=== PATIENT | male | born 1960 | race Caucasian/White ===

== ENCOUNTER 2017-05-07 08:01 | Inpatient (IN) | payer BC ==
[~2017-05-07] VITALS: Ht 167.6 cm; Wt 80.0 kg
[2017-05-07] VITALS (12 sets, daily range): BP systolic 132–145; BP diastolic 78–94; PULSE 52–81; RESP 16–24; TEMP 97.8–98.7; O2SAT 97–100
[~2017-05-07 08:01] MED LIST: CIPR500T2 PO; [UNRECOGNIZED DRUG - CODE] PO
[2017-05-07] MEDS ORDERED: SODIUM CHLOR 0.9% 1000 ML INJ 1,000 ML IV ONE (08:08)
[2017-05-07 08:27] LABS: AUTOMATED NEUTROPHIL # 4.4 TH/MM3 (1.8-7.7); BASOPHIL # 0.1 TH/MM3 (0-0.2); BASOPHIL % 0.9 % (0.0-2.0); EOSINOPHIL # 0.2 TH/MM3 (0-0.4); HEMATOCRIT 49.8 % (39.0-51.0); HEMO FLAGS DIFF FINAL; LYMPH % 33.2 % (9.0-44.0); LYMPHOCYTE # 2.6 TH/MM3 (1.0-4.8); MEAN CELL VOLUME 88.6 FL (80.0-100.0); MEAN CORPUSCULAR HEMOGLOBIN 30.8 PG (27.0-34.0); MEAN CORPUSCULAR HGB CONC 34.7 % (32.0-36.0); MONO % 5.8 % (0.0-8.0); NEUT % 58.1 % (16.0-70.0); PLATELET COUNT 259 TH/MM3 (150-450); RED BLOOD COUNT 5.63 MIL/MM3 (4.50-5.90); RED CELL DISTRIBUTION WIDTH 12.7 % (11.6-17.2); WHITE BLOOD COUNT 7.7 TH/MM3 (4.0-11.0)
--- NOTE | 2017-05-07 08:32 | RADRPT ---
EXAM DATE/TIME: 05/07/2017 08:05 [facility] COMPARISON: No previous studies available for comparison. INDICATIONS : Left sided weakness. Patient fell RADIATION DOSE: 61.60 CTDIvol (mGy) This report was called to Dr. Franklin at 0826 MEDICAL HISTORY : Non-responsive. SURGICAL HISTORY : Non-responsive. ENCOUNTER: Initial ACUITY: 1 day PAIN SCALE: 0/10 LOCATION: cranial TECHNIQUE: Multiple contiguous axial images were obtained of the head. Using automated exposure control and adj ustment of the mA and/or kV according to patient size, radiation dose was kept as low as reasonably a chievable to obtain optimal diagnostic quality images. DICOM format image data is available electro nically for review and comparison. FINDINGS: CEREBRUM: Ill-defined region of decreased density measuring 1.2 x 1 cm in the right frontoparietal high convexi ty white matter. The ventricles are normal for age. No evidence of midline shift, mass lesion, hemor rhage or acute infarction. No extra-axial fluid collections are seen. POSTERIOR FOSSA: The cerebellum and brainstem are intact. The 4th ventricle is midline. The cerebellopontine angle i s unremarkable. EXTRACRANIAL: The visualized portion of the orbits is intact. SKULL: The calvaria is intact. No evidence of skull fracture. Nuchal Carlos Enrique thickening involving the ethmo id air cells and maxillary sinuses. CONCLUSION: 1. 1.2 x 1.0 cm ill-defined region of decreased density in the right frontoparietal high convexity wh ite matter. Differential considerations include subacute infarct versus mass versus demyelinating dis order. Further characterization may be performed with diffusion MRI exam as indicated. Jose M Giraldo MD on May 07, 2017 at 8:22 Board Certified Radiologist. This report was verified electronically.
[2017-05-07 08:34] LABS: CHLORIDE 105 MEQ/L (98-107); POTASSIUM 4.4 MEQ/L (3.5-5.1); SODIUM (NA) 138 MEQ/L (136-145)
[2017-05-07 08:37] LABS: ANION GAP 10 MEQ/L (5-15); BICARBONATE 23.4 MEQ/L (21.0-32.0)
[2017-05-07 08:38] LABS: BLOOD UREA NITROGEN 13 MG/DL (7-18); INTERNATIONAL NORMALIZED RATIO 0.9 RATIO
[2017-05-07 08:41] LABS: GLOMERULAR FILTRATION RATE 77 ML/MIN (>89)
[2017-05-07 08:47] LABS: CREATINE KINASE 86 U/L (39-308)
--- NOTE | 2017-05-07 08:54 | RADRPT ---
EXAM DATE/TIME: 05/07/2017 08:23 [facility] COMPARISON: No previous studies available for comparison. INDICATIONS : Stroke alert. MEDICAL HISTORY : Renal calculi. SURGICAL HISTORY : Appendectomy. Lithortripsy. Renal stents. ENCOUNTER: Initial ACUITY: 1 day PAIN SCORE: 0/10 LOCATION: chest FINDINGS: A single view of the chest demonstrates the lungs to be symmetrically aerated without evidence of mas s, infiltrate or effusion. The cardiomediastinal contours are unremarkable. Osseous structures are intact. CONCLUSION: 1. No acute cardiopulmonary disease. Jose M Giraldo MD on May 07, 2017 at 8:51 Board Certified Radiologist. This report was verified electronically.
--- NOTE | 2017-05-07 09:04 | PD ---
HPI Chief Complaint: Stroke Alert Time Seen by Provider: 08:08 Travel History International Travel<30 days: No Contact w/Intl Traveler<30days: No Traveled to known affect area: No History of Present Illness HPI Patient is a 56 year old male who comes in complaining of left sided weakness. He says that about an hour prior to arrival he experienced sudden weakness of his left side as well as numbness. He reports being unable to hold anything in his left hand and his left leg giving out to the point where he fell to the ground. His reports she observed this happen three other times prior to arrival. He says he was feeling in his normal state of health prior to this event. He denies chest pain or SOB. He has history of smoking, but denies other medical history, though he does report he has not seen a primary care physician in several years. PFS Past Medical History Cancer: No Diabetes: No Diminished Hearing: No Glaucoma: No Hepatitis: No Hiatal Hernia: No Hypertension: No Kidney Stones: Yes Thyroid Disease: No Tetanus Vaccination: > 5 Years Influenza Vaccination: No Past Surgical History Abdominal Surgery: Yes (APPENDECTOMY) Appendectomy: Yes Cardiac Surgery: No Ear Surgery: No Endocrine Surgery: No Eye Surgery: No Genitourinary Surgery: Yes (STENTS LITHOTRIPSY) Gynecologic Surgery: No Oral Surgery: No Pacemaker: No Thoracic Surgery: No Other Surgery: Yes Social History Alcohol Use: Yes Tobacco Use: Yes (PACK/DAY) Substance Use: No Allergies-Medications (Allergen,Severity, Reaction): Coded Allergies: No Known Allergies (Verified , 05/07/17) Reported Meds & Prescriptions Reported Meds & Active Scripts Active No Active Prescriptions or Reported Medications Review of Systems Except as stated in HPI: all other systems reviewed are Neg General / Constitutional: No: Fever, Chills Eyes: No: Blurred Vision HENT: No: Headaches, Lightheadedness Cardiovascular: No: Chest Pain or Discomfort Respiratory: No: Shortness of Breath Genitourinary: No: Dysuria Musculoskeletal: Positive: Weakness, No: Myalgias Skin: No Rash, No Change in Pigmentation Neurologic: Positive: Weakness, Sensory Disturbance Psychiatric: Positive: Anxiety Physical Exam Narrative GENERAL: Awake and alert, in no acute distress. SKIN: Focused skin assessment warm/dry. HEAD: Atraumatic. Normocephalic. EYES: Pupils equal and round. No scleral icterus. EOMI. ENT: Mucous membranes pink and moist. NECK: Trachea midline. No JVD. CARDIOVASCULAR: Regular rate and rhythm. No murmur appreciated. RESPIRATORY: No accessory muscle use. Clear to auscultation. Breath sounds equal bilaterally. GASTROINTESTINAL: Abdomen soft, non-tender, nondistended. MUSCULOSKELETAL: No obvious deformities. No clubbing. No cyanosis. No edema. NEUROLOGICAL: Awake and alert. No obvious cranial nerve deficits, no facial droop. Motor grossly within normal limits, equal hearing examiner strength, equal arm strength. No pronator drift of the arms. Slight drift of left leg. Normal speech. Sensory intact. PSYCHIATRIC: Appears anxious; insight and judgment normal. Data Data Last Documented VS Vital Signs Date Time Temp Pulse Resp B/P Pulse Ox O2 Delivery O2 Flow Rate FiO2 05/07/17 10:33 Room Air 05/07/17 10:29 66 18 145/91 98 05/07/17 08:51 2 05/07/17 08:12 98.0 Orders Cath For Specimen (05/07/17 08:08) Neuro Checks Q2HX12,Q4H (05/07/17 08:08) Nursing Bedside Swallow Assess .ONCE (05/07/17 08:08) Activity Bed Rest (05/07/17 08:08) Diet Npo (05/07/17 Breakfast) Prothrombin Time / Inr (Pt) (05/07/17 08:08) Act Partial Throm Time (Ptt) (05/07/17 08:08) Complete Blood Count With Diff (05/07/17 08:08) Basic Metabolic Panel (Bmp) (05/07/17 08:08) Fibrinogen (05/07/17 08:08) Creatine Kinase (Cpk) (05/07/17 08:08) Troponin I (05/07/17 08:08) Ua Includes Microscopic (05/07/17 08:08) Drug Screen, Random Urine (05/07/17 08:08) Type And Screen (05/07/17 08:08) Ct Brain W/O Iv Contrast(Rout) (05/07/17 ) Chest, Single Ap (05/07/17 ) Electrocardiogram (05/07/17 ) Consult Neurology (05/07/17 08:08) Sodium Chlor 0.9% 1000 Ml Inj (Ns 1000 M (05/07/17 08:08) Blood Glucose (05/07/17 08:08) Ecg Monitoring (05/07/17 08:08) Iv Access Insert/Monitor (05/07/17 08:08) NPO (05/07/17 08:08) Oximetry (05/07/17 08:08) Oxygen Administration (05/07/17 08:08) Resp Oxygen Mushtaq C Titrat 1-4 L (05/07/17 08:08) (Hub Use Only)Inp Phy Cons/Ref (05/07/17 ) Mra Carotids W Contrast (05/07/17 ) Mra Brain W/O Contrast (Cow) (05/07/17 ) Mri Brain W/O Contrast (05/07/17 ) Aspirin (Aspirin) (05/07/17 11:30) Admit Order (Ed Use Only) (05/07/17 ) Labs Laboratory Tests Test 05/07/17 05/07/17 08:20 09:00 White Blood Count 7.7 TH/MM3 Red Blood Count 5.63 MIL/MM3 Hemoglobin 17.3 GM/DL Hematocrit 49.8 % Mean Corpuscular Volume 88.6 FL Mean Corpuscular Hemoglobin 30.8 PG Mean Corpuscular Hemoglobin 34.7 % Concent Red Cell Distribution Width 12.7 % Platelet Count 259 TH/MM3 Mean Platelet Volume 7.3 FL Neutrophils (%) (Auto) 58.1 % Lymphocytes (%) (Auto) 33.2 % Monocytes (%) (Auto) 5.8 % Eosinophils (%) (Auto) 2.0 % Basophils (%) (Auto) 0.9 % Neutrophils # (Auto) 4.4 TH/MM3 Lymphocytes # (Auto) 2.6 TH/MM3 Monocytes # (Auto) 0.4 TH/MM3 Eosinophils # (Auto) 0.2 TH/MM3 Basophils # (Auto) 0.1 TH/MM3 CBC Comment DIFF FINAL Differential Comment Prothrombin Time 10.0 SEC Prothromb Time International 0.9 RATIO Ratio Activated Partial 26.0 SEC Thromboplast Time Fibrinogen 306 mg/dL Sodium Level 138 MEQ/L Potassium Level 4.4 MEQ/L Chloride Level 105 MEQ/L Carbon Dioxide Level 23.4 MEQ/L Anion Gap 10 MEQ/L Blood Urea Nitrogen 13 MG/DL Creatinine 1.00 MG/DL Estimat Glomerular Filtration 77 ML/MIN Rate Random Glucose 95 MG/DL Calcium Level 9.0 MG/DL Total Creatine Kinase 86 U/L Troponin I LESS THAN 0.02 NG/ML Blood Type O POSITIVE Antibody Screen NEGATIVE Blood Bank Comment Urine Collection Type CATH Urine Color STRAW Urine Turbidity CLEAR Urine pH 7.5 Urine Specific [place] 1.005 Urine Protein NEG mg/dL Urine Glucose (UA) NEG mg/dL Urine Ketones NEG mg/dL Urine Occult Blood TRACE Urine Nitrite NEG Urine Bilirubin NEG Urine Leukocyte Esterase NEG Urine Squamous Epithelial 0-5 /hpf Cells Urine Amorphous Sediment FEW Urine Collection Time 0900 Urine Opiates Screen NEG Urine Barbiturates Screen NEG Urine Amphetamines Screen NEG Urine Benzodiazepines Screen NEG Urine Cocaine Screen NEG Urine Cannabinoids Screen POS MDM Medical Decision Making Medical Screen Exam Complete: Yes Emergency Medical Condition: Yes Medical Record Reviewed: Yes Interpretation(s) ECG shows NSR at 63, no ST elevation or depression, normal intervals Differential Diagnosis ICH vs embolic stroke vs mass vs electrolyte abnormalities Narrative Course Patient is a 56-year-old male comes in complaining of episodes of left-sided weakness. Currently his neuro exam is unremarkable other than a slight left leg drift. Established, labs sent. Patient taken to CAT scan for CT of his head. CT reveals an area between the frontal and parietal lobes in the left that could be a subacute infarct versus mass versus demyelinating disease. I spoke with Dr. Andrea of neurology, and tPA will be held at this point due to severity of symptoms and waxing and waning course. MRI is suggested. This will be ordered. Last 24 hours Impressions MRI brain shows a Right MCA infarct. Patient given Aspirin and admitted for further stroke work-up. Last Impressions Neck Magnetic Resonance Angiography 05/07/17 0000 Signed Impressions: Service Date/Time: Sunday, May 07, 2017 10:00 - CONCLUSION: Normal examination. Jona Caba MD Head Magnetic Resonance Angiography 05/07/17 0000 Signed Impressions: Service Date/Time: Sunday, May 07, 2017 10:00 - CONCLUSION: Normal examination. Jona Caba MD Head CT 05/07/17 0000 Signed Impressions: Service Date/Time: Sunday, May 07, 2017 08:05 - CONCLUSION: 1. 1.2 x 1.0 cm ill-defined region of decreased density in the right frontoparietal high convexity white matter. Differential considerations include subacute infarct versus mass versus demyelinating disorder. Further characterization may be performed with diffusion MRI exam as indicated. Jose M Giraldo MD Chest X-Ray 05/07/17 Signed Impressions: Service Date/Time: Sunday, May 07, 2017 08:23 - CONCLUSION: 1. No acute cardiopulmonary disease. Jose M Giraldo MD Brain MRI 05/07/17 Signed Impressions: Service Date/Time: Sunday, May 07, 2017 10:00 - CONCLUSION: 1. Focal signal abnormality within the right parietal subcortical white matter on the diffusion weighted images indicating acute infarct in the right middle cerebral artery distribution. 2. Mild mucosal thickening within the maxillary, ethmoid and sphenoid sinuses. Alex Hernández MD Diagnosis Primary Impression: CVA (cerebral vascular accident) Qualified Code: I63.511 - Cerebrovascular accident (CVA) due to occlusion of right middle cerebral artery Admitting Information Admitting Physician Requests: Admit Scripts No Active Prescriptions or Reported Meds Mariam Franklin MD May 07, 2017 09:04
[2017-05-07 09:12] LABS: BLOOD, URINE TRACE (NEG); GLUCOSE,URINE NEG (NEG); KETONE, URINE NEG (NEG); NITRITE,URINE NEG (NEG); PH, URINE 7.5 (5.0-8.5)
[2017-05-07 09:21] LABS: METHOD OF COLLECTION CATH; URINE COLOR STRAW (YELLW/STRAW)
[2017-05-07 09:22] LABS: SQUAMOUS EPITHELIAL CELL URINE 0-5 /hpf (0-5)
[2017-05-07 09:54] LABS: AMPHETAMINE, URINE NEG (NEG); COCAINE, URINE NEG (NEG)
[2017-05-07 09:55] LABS: BARBITURATES, URINE NEG (NEG)
--- NOTE | 2017-05-07 10:49 | RADRPT ---
EXAM DATE/TIME: 05/07/2017 10:00 [facility] COMPARISON: MRI BRAIN W/O CONTRAST, May 07, 2017, 10:00. INDICATIONS : Left sided weakness. MEDICAL HISTORY : None. SURGICAL HISTORY : Appendectomy. Lithotripsy. ENCOUNTER: Initial ACUITY: 1 day PAIN SCORE: 0/10 LOCATION: head Please note a normal MRA of the brain does not entirely exclude the possibility of a small aneurysm, nor the possibility of distal intracranial vessel disease. TECHNIQUE: 3D time of flight MRA was performed. Source images, multiplanar STS MIP, and 3D volume MIP reconstru ctions were reviewed. FINDINGS: There is excellent visualization of the major intracranial arteries out to the second-order branch ve ssels. There is no evidence for aneurysm, vessel truncation or stenosis, and no evidence for vascula r malformation. CONCLUSION: Normal examination. Jona Caba MD on May 07, 2017 at 10:45 Board Certified Radiologist. This report was verified electronically.
--- NOTE | 2017-05-07 10:50 | RADRPT ---
EXAM DATE/TIME: 05/07/2017 10:00 [facility] COMPARISON: No previous studies available for comparison. INDICATIONS : Left sided weakness. MEDICAL HISTORY : None. SURGICAL HISTORY : Appendectomy. Lithotripsy. ENCOUNTER: Initial ACUITY: 1 day PAIN SCORE: 0/10 LOCATION: head TECHNIQUE: Multiplanar, multisequence MRI of the brain was performed without contrast. FINDINGS: There is evidence of focal signal abnormality within the right parietal subcortical white matter on t he diffusion weighted images indicating acute infarct in the right middle cerebral artery distributio n. No acute hemorrhage is noted. No midline shift or extra-axial bleed is noted. The ventricles, sulc i and cisterns are normal in appearance. Mild mucosal thickening is noted within the maxillary, ethmo id, and sphenoid sinuses. CONCLUSION: 1. Focal signal abnormality within the right parietal subcortical white matter on the diffusion weigh jose images indicating acute infarct in the right middle cerebral artery distribution. 2. Mild mucosal thickening within the maxillary, ethmoid and sphenoid sinuses. Alex Hernández MD on May 07, 2017 at 10:44 Board Certified Radiologist. This report was verified electronically.
--- NOTE | 2017-05-07 11:07 | RADRPT ---
EXAM DATE/TIME: 05/07/2017 10:00 [facility] COMPARISON: No previous studies available for comparison. INDICATIONS : Stroke. Left sided weakness. CONTRAST: 20 cc Omniscan (gadodiamide) IV MEDICAL HISTORY : None. SURGICAL HISTORY : Appendectomy. Lithotripsy. ENCOUNTER: Initial ACUITY: 1 day PAIN SCORE: 0/10 LOCATION: head Percent stenosis is calculated using the diameter of the stenotic region over the diameter of the nor mal distal internal carotid artery. TECHNIQUE: Bolus infused MRA of the extracranial circulation was performed using a neurovascular coil. Post pro cessing was performed including rotating subvolume maximum intensity projections of each carotid antonia ry, rotating full volume maximum intensity projections of both carotid arteries, sagittal and coronal sliding thin slab reformations of each carotid artery, and left oblique sliding thin slab reformatio n through the aortic arch to include the origin of the arch branch vessels.FINDINGS: AORTIC ARCH: There is a three vessel origin of the great vessels from the aorta. No evidence of ostial narrowing. RIGHT CAROTID: The common carotid artery is intact. The carotid bulb has a normal configuration without ulceration or narrowing. The internal carotid artery lumen is smooth without stenosis. The external carotid ar wilma is intact. LEFT CAROTID: The common carotid artery is intact. The carotid bulb has a normal configuration without ulceration or narrowing. The internal carotid artery lumen is smooth without stenosis. The external carotid ar wilma is intact. VERTEBRALS: The vertebral arteries have a symmetric diameter. No stenotic lesions are seen. CONCLUSION: Normal examination. Jona Caba MD on May 07, 2017 at 11:03 Board Certified Radiologist. This report was verified electronically.
[2017-05-07] MEDS ORDERED: ENALAPRILAT 1.25 MG/ML VIAL IV PRN (11:30)
[2017-05-07] MEDS ORDERED: DEXTROSE 50% IN WATER 50 ML VIAL(D50) IV PUSH PRN (11:30)
[2017-05-07] MEDS ORDERED: GLUCAGON 1 MG/ML VIAL OTHER PRN (11:30)
[2017-05-07] MEDS ORDERED: ASPIRIN 325 MG TAB PO ONE (11:30)
[2017-05-07] MEDS ORDERED: SODIUM CHLORIDE 0.9% FLUSH 5 ML FLUSH IV FLUSH PRN (11:30)
[2017-05-07] MEDS ORDERED: GADODIAMIDE PF 287 MG/ML 20 ML VIAL (for RAD MRI) IV ONE (11:56)
--- NOTE | 2017-05-07 14:07 | HHI.HP ---
HPI Service [facility] Primary Care Physician No Primary Care Physician Admission Diagnosis CVA Diagnoses: (1) CVA (cerebral vascular accident) (2) Tobacco abuse Chief Complaint: Left Sided weakness Travel History International Travel<30 Days: No Contact w/Intl Traveler <30 Da: No Traveled to Known Affected Are: No History of Present Illness 56-year-old left handed male with a history of tobacco abuse, was brought to the ED as a stroke alert for evaluation of left-sided weakness and patient states around 6:30 this morning as was sitting outside on the porch holding cigarette in his left hand; his hand became weak and numb causing patient to drop a cigarette. The weakness and numbness progressed rapidly to the entire left upper extremity, left side of his face then finally to his left lower extremity as patient became unable to lift and bear weight on his left side was and causing the patient to fell on his left side. He reported improvement of symptoms initially; however 50 minutes after patient could not walk mostly left- sided weakness and numbness. There is no slurring of the speech. Denies any chest pain or shortness of breath. During my exam patient has complete resolution of symptoms Review of Systems Except as stated in HPI: all other systems reviewed are Neg Past Family Social History Past Medical History Tobaccoism Past Surgical History Appendectomy Lithotripsy Reported Medications Not Currently on any medication Allergies: Coded Allergies: No Known Allergies (Verified , 05/07/17) Family History Mother from complication of diabetes Father from brain aneurysm, had colon cancer Social History Smoked one pack per day and occasionally use marijuana Physical Exam Vital Signs Vital Signs Date Time Temp Pulse Resp B/P Pulse Ox O2 Delivery O2 Flow Rate FiO2 05/07/17 13:47 98.7 79 18 132/78 98 05/07/17 12:22 97.8 66 16 140/81 99 Room Air 05/07/17 11:30 99 Nasal Cannula 2.00 05/07/17 10:33 Room Air 05/07/17 10:29 66 18 145/91 98 Room Air 05/07/17 08:51 100 Nasal Cannula 2 05/07/17 08:12 98.0 81 24 141/85 100 Room Air 05/07/17 08:12 100 Room Air Physical Exam GENERAL: This is a well-nourished, well-developed patient, in no apparent distress. SKIN: No rashes, ecchymoses or lesions. Cool and dry. HEAD: Atraumatic. Normocephalic. No temporal or scalp tenderness. EYES: Pupils equal round and reactive. Extraocular motions intact. No scleral icterus. No injection or drainage. ENT: Nose without bleeding, purulent drainage or septal hematoma. Throat without erythema, tonsillar hypertrophy or exudate. Uvula midline. Airway patent. NECK: Trachea midline. No JVD or lymphadenopathy. Supple, nontender, no meningeal signs. CARDIOVASCULAR: Regular rate and rhythm without murmurs, gallops, or rubs. RESPIRATORY: Clear to auscultation. Breath sounds equal bilaterally. No wheezes , rales, or rhonchi. GASTROINTESTINAL: Abdomen soft, non-tender, nondistended. No hepato-splenomegaly , or palpable masses. No guarding. MUSCULOSKELETAL: Extremities without clubbing, cyanosis, or edema. No joint tenderness, effusion, or edema noted. No calf tenderness. Negative Homans sign bilaterally. NEUROLOGICAL: Awake and alert. Cranial nerves II through XII intact. Motor and sensory grossly within normal limits. Five out of 5 muscle strength in all muscle groups. Normal speech. Laboratory Laboratory Tests Test 05/07/17 05/07/17 08:20 09:00 White Blood Count 7.7 Red Blood Count 5.63 Hemoglobin 17.3 Hematocrit 49.8 Mean Corpuscular Volume 88.6 Mean Corpuscular Hemoglobin 30.8 Mean Corpuscular Hemoglobin 34.7 Concent Red Cell Distribution Width 12.7 Platelet Count 259 Mean Platelet Volume 7.3 Neutrophils (%) (Auto) 58.1 Lymphocytes (%) (Auto) 33.2 Monocytes (%) (Auto) 5.8 Eosinophils (%) (Auto) 2.0 Basophils (%) (Auto) 0.9 Neutrophils # (Auto) 4.4 Lymphocytes # (Auto) 2.6 Monocytes # (Auto) 0.4 Eosinophils # (Auto) 0.2 Basophils # (Auto) 0.1 CBC Comment DIFF FINAL Differential Comment Prothrombin Time 10.0 Prothromb Time International 0.9 Ratio Activated Partial 26.0 Thromboplast Time Fibrinogen 306 Sodium Level 138 Potassium Level 4.4 Chloride Level 105 Carbon Dioxide Level 23.4 Anion Gap 10 Blood Urea Nitrogen 13 Creatinine 1.00 Estimat Glomerular Filtration 77 Rate Random Glucose 95 Calcium Level 9.0 Total Creatine Kinase 86 Troponin I LESS THAN 0.02 Blood Type O POSITIVE Antibody Screen NEGATIVE Blood Bank Comment Urine Collection Type CATH Urine Color STRAW Urine Turbidity CLEAR Urine pH 7.5 Urine Specific [place] 1.005 Urine Protein NEG Urine Glucose (UA) NEG Urine Ketones NEG Urine Occult Blood TRACE Urine Nitrite NEG Urine Bilirubin NEG Urine Leukocyte Esterase NEG Urine Squamous Epithelial 0-5 Cells Urine Amorphous Sediment FEW Urine Collection Time 0900 Urine Opiates Screen NEG Urine Barbiturates Screen NEG Urine Amphetamines Screen NEG Urine Benzodiazepines Screen NEG Urine Cocaine Screen NEG Urine Cannabinoids Screen POS Result Diagram: 05/07/[id number]/[id number]/[id number] Imaging Last Impressions Neck Magnetic Resonance Angiography 05/07/17 Signed Impressions: Service Date/Time: Sunday, May 07, 2017 10:00 - CONCLUSION: Normal examination. Jona Caba MD Head Magnetic Resonance Angiography 05/07/17 Signed Impressions: Service Date/Time: Sunday, May 07, 2017 10:00 - CONCLUSION: Normal examination. Jona Caba MD Head CT 05/07/17 Signed Impressions: Service Date/Time: Sunday, May 07, 2017 08:05 - CONCLUSION: 1. 1.2 x 1.0 cm ill-defined region of decreased density in the right frontoparietal high convexity white matter. Differential considerations include subacute infarct versus mass versus demyelinating disorder. Further characterization may be performed with diffusion MRI exam as indicated. Jose M Giraldo MD Chest X-Ray 05/07/17 0000 Signed Impressions: Service Date/Time: Sunday, May 07, 2017 08:23 - CONCLUSION: 1. No acute cardiopulmonary disease. Jose M Giraldo MD Brain MRI 05/07/17 0000 Signed Impressions: Service Date/Time: Sunday, May 07, 2017 10:00 - CONCLUSION: 1. Focal signal abnormality within the right parietal subcortical white matter on the diffusion weighted images indicating acute infarct in the right middle cerebral artery distribution. 2. Mild mucosal thickening within the maxillary, ethmoid and sphenoid sinuses. Alex Hernández MD Assessment and Plan Problem List: (1) CVA (cerebral vascular accident) ICD Code: I63.9 Status: Acute (2) Tobacco abuse ICD Code: Z72.0 Status: Acute (3) Tobacco abuse counseling ICD Code: Z71.6 Status: Acute Assessment and Plan 56-year-old man with Acute CVA: Treatment per stroke protocol -No TPA therapy initiated as patient's symptoms resolved -Continue with aspirin -Start statin therapy -NIHSS, Neuro checks, Monitor on telemetry -PT/OT/ST evaluations, consult rehab medicine -allow permissive HTN, IV Vasotec and IV labetalol if SBP >220 -Check lipid profile and HgbA1c -Check carotid U/S -Head CT 05/07/17 noted and review by me with 1.2 x 1.0 cm ill-defined region of decreased density in the right frontoparietal high convexity white matter. -Brain MRI 05/07/17 noted and review by me with finding of Focal signal abnormality within the right parietal subcortical white matter on the diffusion weighted images indicating acute infarct in the right middle cerebral artery distribution. -Brain/Neck MRA 05/07/17 noted and reviewed by me with normal examination -Check echocardiogram -Neurology consulted pending -Consider EEG History of hypertension: We will allow for permissive hypertension Nicotinic dependence: Counseled to quit, place nicotine patch H/o Marijuana used: Counselled to quit DVT prophylaxis: Bilateral SCDs GI prophylaxis: PPI Code Status Full code Discussed Condition With Patient, , ED physician Physician Certification 2 Midnight Certification Type: Admission for Inpatient Services Order for Inpatient Services The services are ordered in accordance with Medicare regulations or non- Medicare payer requirements, as applicable. In the case of services not specified as inpatient-only, they are appropriately provided as inpatient services in accordance with the 2-midnight benchmark. Estimated LOS (days): 2 days is the estimated time the patient will need to remain in the hospital, assuming treatment plan goals are met and no additional complications. Post-Hospital Plan: Not yet determined Problem Qualifiers (1) CVA (cerebral vascular accident): Qualified Code: I63.511 - Cerebrovascular accident (CVA) due to occlusion of right middle cerebral artery Jairo Garza MD May 07, 2017 14:07
[2017-05-07 14:09] LABS: HEMOGLOBIN A1a 1.3 %; HEMOGLOBIN A1b 0.9 %; HEMOGLOBIN Ao 85.8 %; HEMOGLOBIN F 0.9 %; HEMOGLOBIN P3 3.6 %
[2017-05-07] MEDS: NICOTINE 21 MG/24 HR PATCH T-DERMAL SCH (14:40)
--- NOTE | 2017-05-07 16:02 | EKG ---
Date Performed: 05/07/2017 Time Performed: 08:36:49 PTAGE: 56 years EKG: Sinus rhythm BORDERLINE LEFT AXIS DEVIATION MINIMAL ST DEPRESSION BORDERLINE ECG Just now consider inferior ische ana m. PREVIOUS TRACING : 02/01/2010 13.22 DOCTOR: Lxe Alves Interpretating Date/Time 05/07/2017 16:00:49
[2017-05-07] MEDS: INSULIN ASPART SUPPLEMENTAL SCALE SQ SCH ×2 (17:00→21:00)
--- NOTE | 2017-05-07 20:47 | MB ---
cc: MADI BEAULIEU M.D. DATE OF CONSULTATION: 05/07/2017 DATE OF : 1960, 56 years old. REASON FOR CONSULTATION: Stroke alert HISTORY OF PRESENT ILLNESS: The patient is a 56 year-old man who comes in with left-sided deficits. About an hour or so prior to arrival, he tried to reach for something and noted that he was having trouble using his left hand and then he got up and fell. Apparently his observed this happening three times prior to arrival. When he arrived here he was back to baseline, hence he was not a candidate for TPA since his symptoms disappeared. He denied having any weakness currently. No numbness or tingling. No shortness of breath or chest pain. PAST MEDICAL HISTORY: Denies SOCIAL HISTORY: He is . He is a smoker for many years, has tried to quit but has continued to smoke. There is no drug or alcohol history. Other medical history: Nephrolithiasis. PAST SURGICAL HISTORY Appendectomy, lithotripsy. SOCIAL HISTORY: Smoker of a pack per day since his teens. Admits to some THC. Alcohol social. ALLERGIES: None reported. ACTIVE MEDICINES AT HOME: None. PHYSICAL EXAMINATION: VITAL SIGNS: Temperature 98.7, heart rate currently 52, respiratory rate 18, blood pressure 132/78. NECK: Neck is supple. There are no carotid bruits. Heart:. Upon auscultation bedside currently seems like he has either a third beat or he skips a beat but does not sound like atrial fibrillation. LUNGS: Clear. ABDOMEN: Soft. EXTREMITIES: No edema. NEUROLOGIC: He is awake, alert. He is oriented to person, place and time. Pupils are active. Visual garcia full. Face symmetrical. Tongue midline. Normal speech. Facial sensation normal bilaterally, all three territories. Motor-cooper, he does not exhibit any drift or leg lag. Cerebellar testing is normal. Toes are both withdrawing to noxious stimuli. DTRs are symmetrical. Sensory is normal. Gait is withheld at this time. LABORATORY DATA: Reviewed. Hemoglobin is 17.3, likely due to tobacco use. Coag panel is normal. Chemistry: GFR is 77. Troponin less than 0.02, A1c is 5.4. Lipid panel is still pending. Urine: Trace occult blood. Toxicology screen positive for cannabinoids. IMAGING STUDIES: Neck MRA without any occlusion. Head MRA normal as well. However, MRI did show subcortical white matter, infarct acute. IMPRESSION Right parietal infarct in a 56-year-old man with tobacco abuse, possible onset of hypertension. He has been over 140, multiple times here and that needs to be determined given that he is in the hospital. RECOMMENDATIONS: Obtain his lipid panel, echo. His EKG does not show any A-fib, however, it is interpreted as left axis deviation, minimal ST depression, borderline EKG. We will keep him on aspirin therapy since he does not take aspirin at home, Lipitor already has been started, adjust the dose pending on what his LDL level is once it is reported. Treat systolic blood pressure over 220, diastolic over 110. Vasotec injectable is fine. PT/OT evaluation. I did take the liberty of ordering a Holter monitor in the event he does have atrial fibrillation. If his workup tomorrow is unremarkable, he can certainly be discharged home if cleared by therapy. MD LOLIS Ly/CARMEN /4:50 PM /8:35 PM
[2017-05-07] MEDS ORDERED: ATORVASTATIN 10 MG TAB PO SCH (21:00)
[2017-05-07] MEDS: SODIUM CHLORIDE 0.9% FLUSH 5 ML FLUSH IV FLUSH SCH (21:00)
[2017-05-07] MEDS ORDERED: REMOVE OLD PATCH T-DERMAL SCH (21:00)
[2017-05-08] MEDS: INSULIN ASPART SUPPLEMENTAL SCALE SQ SCH (07:12)
[2017-05-08 08:00] VITALS: BP 158/100; PULSE 70; RESP 18; TEMP 98.1; O2SAT 97
[2017-05-08] MEDS: SODIUM CHLORIDE 0.9% FLUSH 5 ML FLUSH IV FLUSH SCH (08:36)
[2017-05-08] MEDS ORDERED: ASPIRIN 325 MG TAB PO SCH (09:00)
[2017-05-08] MEDS: NICOTINE 21 MG/24 HR PATCH T-DERMAL SCH (09:14)
[2017-05-08] MEDS ORDERED: ASPI325T PO (09:21)
[2017-05-08] MEDS ORDERED: ATOR40TA16 PO (09:21)
--- NOTE | 2017-05-08 09:22 | HHI.PR ---
Subjective Remarks Follow-up for right parietal infarction. Patient is currently doing well. Back to his baseline. Ambulating well. Denies any chest pain, shortness of breath, fever or chills. Objective Vitals Vital Signs Date Time Temp Pulse Resp B/P Pulse Ox O2 Delivery O2 Flow Rate FiO2 05/08/17 08:00 98.1 70 18 158/100 97 05/07/17 23:28 61 05/07/17 22:56 61 05/07/17 20:00 97.9 64 18 140/94 98 05/07/17 19:30 97 21 05/07/17 16:56 98.3 60 18 135/91 98 05/07/17 15:15 52 05/07/17 13:47 98.7 79 18 132/78 98 05/07/17 12:22 97.8 66 16 140/81 99 Room Air 05/07/17 11:30 99 Nasal Cannula 2.00 05/07/17 10:33 Room Air 05/07/17 10:29 66 18 145/91 98 Room Air I/O 05/07/17 05/07/17 05/07/17 05/08/17 05/08/17 05/08/17 07:00 15:00 23:00 07:00 15:00 23:00 Intake Total 830 ml 0 ml Output Total 300 ml Balance -300 ml 830 ml 0 ml Intake Oral 480 ml IV Total 350 ml 0 ml Output Urine Total 300 ml # Voids 1 3 Result Diagram: 05/07/17 0820 05/07/17 0820 Imaging Last Impressions Neck Magnetic Resonance Angiography 05/07/17 0000 Signed Impressions: Service Date/Time: Sunday, May 07, 2017 10:00 - CONCLUSION: Normal examination. Jona Caba MD Head Magnetic Resonance Angiography 05/07/17 0000 Signed Impressions: Service Date/Time: Sunday, May 07, 2017 10:00 - CONCLUSION: Normal examination. Jona Caba MD Head CT 05/07/17 0000 Signed Impressions: Service Date/Time: Sunday, May 07, 2017 08:05 - CONCLUSION: 1. 1.2 x 1.0 cm ill-defined region of decreased density in the right frontoparietal high convexity white matter. Differential considerations include subacute infarct versus mass versus demyelinating disorder. Further characterization may be performed with diffusion MRI exam as indicated. Jose M Giraldo MD Chest X-Ray 05/07/17 0000 Signed Impressions: Service Date/Time: Sunday, May 07, 2017 08:23 - CONCLUSION: 1. No acute cardiopulmonary disease. Jose M Giraldo MD Brain MRI 05/07/17 0000 Signed Impressions: Service Date/Time: Sunday, May 07, 2017 10:00 - CONCLUSION: 1. Focal signal abnormality within the right parietal subcortical white matter on the diffusion weighted images indicating acute infarct in the right middle cerebral artery distribution. 2. Mild mucosal thickening within the maxillary, ethmoid and sphenoid sinuses. Alex Hernández MD Objective Remarks GENERAL: Alert, oriented 3, NAD. SKIN: Warm and dry. HEAD: Normocephalic. EYES: No scleral icterus. No injection or drainage. NECK: Supple, trachea midline. No JVD or lymphadenopathy. CARDIOVASCULAR: Regular rate and rhythm without murmurs, gallops, or rubs. RESPIRATORY: Breath sounds equal bilaterally. No accessory muscle use. GASTROINTESTINAL: Abdomen soft, non-tender, nondistended. MUSCULOSKELETAL: No cyanosis, or edema. BACK: Nontender without obvious deformity. No CVA tenderness. Procedures None. A/P Problem List: (1) CVA (cerebral vascular accident) ICD Code: I63.9 Status: Acute (2) Tobacco abuse ICD Code: Z72.0 Status: Acute Assessment and Plan Right parietal infarction - Patient is back to baseline. No weakness. - Continue Aspirin 325mg Qday and Lipitor 40mg Qday. - PCP and neurology follow up in the outpatient setting. Tobacco abuse - Patient is very motivated to quit smoking. - Hypertension - Most BP readings are within reasonable range. Patient is advised to monitor blood pressure at home. - He will obtain PCP and if needed will get on blood pressure medication. Full code. Discharge patient to home Condition on discharge: Improved Heart healthy Diet as tolerated Ad Christina activity Rx written: - Aspirin 325mg Qday - Lipitor 40mg Qday. Follow-up with primary care physician within one week. Problem Qualifiers (1) CVA (cerebral vascular accident): Qualified Code: I63.511 - Cerebrovascular accident (CVA) due to occlusion of right middle cerebral artery Nina Arriaga DO May 08, 2017 9:22 am
[2017-05-08 10:07] LABS: HDL CHOLESTEROL 51.5 MG/DL (40.0-60.0)
== END 2017-05-08 10:13 | disposition home or self-care (01) | DRG 66 ==
LOC: PHED 08:01 → PHEDA 11:30 → PH3B 13:26
PROVIDERS: ADMIT Hospitalist; ATTEND Hospitalist
DX: I63.511 Cerebral infarction due to unspecified occlusion or stenosis of right middle cerebral artery (principal); I10 Essential (primary) hypertension; F17.210 Nicotine dependence, cigarettes, uncomplicated; F12.90 Cannabis use, unspecified, uncomplicated; Z87.442 Personal history of urinary calculi; W19.XXXA Unspecified fall, initial encounter; Y92.9 Unspecified place or not applicable
CPT/HCPCS: 70450; 70544; 70548; 70551; 71010; 80048; 80061; 80307; 81001; 82550; 82948; 83036; 84484; 85025; 85384; 85610; 85730; 86850; 86900; 86901; 93005; A9579; J7030